=== PATIENT | female | born 1950 | race Caucasian/White ===

== ENCOUNTER 2019-02-22 13:29 | Emergency (ER) | payer MEDICARE ==
[~2019-02-22] VITALS: Ht 167.6 cm; Wt 109.1 kg
[~2019-02-22 13:29] MED LIST: ASPI-1265 PO; CALC-1197 PO; CETI-1 PO; GINK60TA2 PO; HYDR-3965 PO; MULT-785 PO; VITC500T PO
[2019-02-22 13:43] VITALS: BP 151/85
[2019-02-22] MEDS ORDERED: HYDROcodone/acetaminophen 5mg/325mg tablet PO ONE (14:30)
[2019-02-22] MEDS ORDERED: HYDR-4383 PO (14:31)
== END 2019-02-22 15:07 | disposition home or self-care (01) ==
LOC: ER 13:29
DX: S80.01XA Contusion of right knee, initial encounter (principal); M25.461 Effusion, right knee; Z90.49 Acquired absence of other specified parts of digestive tract; Z98.84 Bariatric surgery status; Z91.030 Bee allergy status; Z88.0 Allergy status to penicillin; Z79.82 Long term (current) use of aspirin; Z79.899 Other long term (current) drug therapy; W18.39XA Other fall on same level, initial encounter; Y93.89 Activity, other specified; Y92.89 Other specified places as the place of occurrence of the external cause; Y99.8 Other external cause status
CPT/HCPCS: 29505; 29515; 73564; 99283